=== PATIENT | male | born 2000 | race Caucasian/White ===

== ENCOUNTER 2024-09-23 13:15 | Outpatient (AMB) | payer OTHER, SELFPAY ==
--- NOTE | 2024-09-23 13:16 | A.OFFVIS_ITS ---
Vital Signs 09/23/24 13:19 Height 6 ft Weight 232 lb 9.403 oz BMI 31.5 BP 96/56 L Blood Pressure Location Lt brachial Position Sitting Pulse 80 Pulse Source Pulse Oximeter Pulse Oximetry (%) 98 Oxygen Delivery Method Room Air Intake Visit Reasons: Asthma Boarding Machine Operator Required: No Accompanied by: Self / Same As Patient Allergies amoxicillin (From Augmentin) Allergy (Mild, Verified 09/23/24 13:20) Hives clavulanic acid (From Augmentin) Allergy (Mild, Verified 09/23/24 13:20) Hives HPI Comments Details: The patient is here for pulmonary evaluation. The patient is a 24-year-old gentleman with lifelong asthma. He had been followed closely by pediatric Pulmonary for many years. The patient had been on Xolair for period of time. Also his allergy medicines. He had been stable for awhile. He does stay very active any exercises regularly. The patient does not use any maintenance inhalers at this time and again he has been off the Xolair. Denies any respiratory limitations. Allergy sometimes become an issue and he does take Claritin as needed he also has Singulair and also nasal sprays. Recently he was having issues with abdominal discomfort and underwent a CT scan of the abdomen which I personally reviewed. Lung with those demonstrate clear lungs. He does have slight air-fluid level in the distal esophagus and therefore we talked about reflux disease making sure that he is propped up with pillows when he sleep. Otherwise no abnormalities noted. Then after the CAT scan he did undergo an elective appendectomy. He tolerated that well and his symptoms have improved. From a respiratory status he continues to do well on exercise regularly. We did talk about breathing exercises that he can work on to help him with his exhalation. The patient also was given a peak flow in the office. His peak flow is 625 mL. He is going to monitor the trend specially when it becomes symptomatic. For now he will continue using his rescue inhaler with no need for any maintenance inhaler or p.r.n. cortical steroids. If his symptoms worsen he can always call for further recommendations otherwise will follow-up in a year with pulmonary function studies. [facility] Medical History (Updated 09/23/24 @ 14:16 by Davi Mistry MD) Chronic allergic rhinitis Asthma Social History (Updated 09/23/24 @ 13:22 by Adela Treviño CMA) Patient Tobacco Use Status: Never used Tobacco Review of Systems Const Denies fever(s) Eyes Reports no additional complaints ENT Reports nasal discharge Card Denies chest pain Resp Reports cough GI Reports as per HPI Musc Reports no additional complaints Skin/Breast Denies rash Neuro Reports no additional complaints Elie/Lymph Reports no additional complaints Physical Exam Vital Signs: Last Vital Signs Pulse 80 09/23/24 13:19 BP 96/56 L 09/23/24 13:19 Pulse Ox 98 09/23/24 13:19 Oxygen Delivery Method Room Air 09/23/24 13:19 BMI result Body Mass Index 31.5 Const General: comfortable HEENT Head: Yes normocephalic Neck Neck: Yes supple Chest Chest palpation & inspection: normal inspection of the chest Resp Effort & Inspection: normal respiratory effort Auscultation: clear to auscultation bilaterally (slight prolonged) Cardio Heart sounds: S1 normal heart sound present and S2 normal heart sound present GI Palpation (GI): Soft to palpation Skin General skin exam: no rashes or lesions noted Extrem General: Yes no clubbing, cyanosis or edema Assessment & Plan Assessment & Plan (1) Asthma: Code(s): J45.909 - Unspecified asthma, uncomplicated Category: Medical Qualifiers: Asthma severity: moderate Asthma persistence: persistent Asthma complication type: uncomplicated Qualified Code(s): J45.40 - Moderate persistent asthma, uncomplicated (2) Chronic allergic rhinitis: Code(s): J30.9 - Allergic rhinitis, unspecified Category: Medical Plan CRISTOFER as needed continue singulair Claritin as needed nasal spray therapy reflux diet sleep elevated PFT next yr F/U 1 yr Orders: Orders PFT pulmonary function test 10 Months J45.40 - Moderate persistent asthma, uncomplicated Medications: New montelukast (Singulair) 10 mg PO BEDTIME 30 tabs 11RF 30 days J45.909 - Unspecified asthma, uncomplicated Coding Level of Care Code New Pt Level 4 (67144) Diagnoses Moderate persistent asthma without complication J45.40 Asthma severity: moderate Asthma persistence: persistent Asthma complication type: uncomplicated Chronic allergic rhinitis J30.9 Time Spent (min) 40
[2024-09-23 13:19] VITALS: BP 96/56; PULSE 80; O2SAT 98; BMI 31.5
--- OUTSIDE RECORDS SUMMARY | 2024-09-23 14:02 | XMS_ITS | Encounter Summary ---
Author Organization [facility] Address [address] [place] [address] Phone Care Team Providers Care Electrical Control Assembler Name Role Phone Lelia Barton MD Primary Care Provider [phone] Encounter Details Date Type Department Care Team (Late st Contact Info) Description 12/16/2010 Conversion Encounter [facility] [place] [address] [place] [address] Social History Tobacco Use Types Packs/Day Years Used Date Smoking Tobacco: Never Assessed Sex and Gender Information Value Date Recorded Sex Assigned at Not on file Legal Sex Male 6:42 PM EDT Gender Identity Not on file Sexual Orientation Straight 04/15/2019 8: 29 AM EST documented as of this encounter Plan of Treatment Not on file documented as of this encounter Visit Diagnoses Not on filedocumented in this encounter Care Teams Electrical Control Assembler Relationship Specialty Start Date End Date Lelia Barton MD [address] [place] [address] PCP - General 07/04/17 04/27/21 documented as of this encounter
== END 2024-09-23 15:17 | disposition home or self-care (01) ==
LOC: HO.HPS 13:15
PROVIDERS: PCP Internal Medicine; Visit Provider Hospitalist
DX: J45.40 Moderate persistent asthma, uncomplicated (principal); J30.9 Allergic rhinitis, unspecified
CPT/HCPCS: 99204